=== PATIENT | female | born 1950 | race Asian ===

== ENCOUNTER 2022-10-15 16:21 | Inpatient (IN) | payer BC, OTHER ==
[~2022-10-15] VITALS: Ht 149.9 cm; Wt 79.4 kg
[2022-10-15] MEDS ORDERED: NITROGLYCERIN 0.4 MG SL TAB SL ONE (16:30)
[2022-10-15] MEDS ORDERED: ASPirin 325 MG TAB PO ONE (16:30)
[2022-10-15] MEDS ORDERED: IPRATROPIUM BROM 0.5 MG/2.5ML INH SOL NEB ONE (16:30)
[2022-10-15] MEDS ORDERED: DexAMETHasone SOD PHOS 10MG/1ML VIAL INJ IV ONE (16:30)
[2022-10-15] MEDS ORDERED: ALBUTEROL SULF 2.5 MG/0.5ML(0.5%) NEB SOLN NEB ONE (16:30)
[2022-10-15 16:53] LABS: Basophils # (auto) 0.1 10 ^3/uL (0-0.2); Eosinophils # (auto) 0.7 10 ^3/uL (0-0.8); Eosinophils % (auto) 8.3 % (0.0-7.0); Hematocrit 40.8 % (36.0-46.0); Hemoglobin 13.7 g/dL (12.2-16.2); Lymphocytes % (auto) 23.8 % (10.0-50.0); Mean Corpuscular Hemoglobin 32.3 pg (28.0-32.0); Mean Corpuscular Hgb Conc. 33.5 g/dL (32.0-36.0); Mean Corpuscular Volume 96.4 fL (80.0-100.0); Monocytes # (auto) 0.5 10 ^3/uL (0-1.3); Monocytes % (auto) 6.1 % (0.0-12.0); Neutrophils % (auto) 60.8 % (37.0-80.0); Red Blood Cells 4.23 10^6/uL (4.0-5.20); Red Cell Distribution Width 14.8 % (11.8-14.3); White Blood Cell 8.2 10^3/uL (4.4-10.8)
[2022-10-15 17:14] LABS: Albumin 3.9 g/dL (3.4-5.0); Calcium 9.1 mg/dL (8.5-10.1); Potassium 3.9 mmol/L (3.5-5.1)
[2022-10-15 17:17] LABS: BUN/Creatinine Ratio 23.9 (10.0-20.0); Bilirubin, Total 0.8 mg/dL (0.2-1.0); Total Protein 7.4 g/dL (6.4-8.2)
[2022-10-15] MEDS ORDERED: IOHEXOL 350 MG/ML 100ML IJ ONE (18:54)
[2022-10-15] MEDS ORDERED: ACETAMINOPHEN 325 MG TAB PO PRN (19:30)
[2022-10-15] MEDS ORDERED: ENOXAPARIN SOD 80 MG/0.8ML SYRINGE SC ONE (19:30)
[2022-10-15] MEDS ORDERED: NITROGLYCERIN 0.4 MG SL TAB SL PRN (19:30)
[2022-10-15] MEDS ORDERED: MORPHINE SULFATE INJ 2 MG/ml SYRG IV PRN (19:30)
[2022-10-15] MEDS ORDERED: SODIUM CHLORIDE 0.9% 1,000 ML IV SCH (19:30)
[2022-10-15 19:41] LABS: Urine Bacteria NONE SEEN /hpf (None Seen); Urine Blood Negative /uL (Negative); Urine Specific Gravity 1.009 (1.001-1.035); Urine WBC 1 /hpf (0 - 5)
[2022-10-15] MEDS ORDERED: DEXTROSE (50%) 50ML SYRG IV PRN (19:45)
[2022-10-15] MEDS ORDERED: ALBUTEROL SULF 2.5 MG/0.5ML(0.5%) NEB SOLN NEB PRN (19:45)
[2022-10-15 20:47] LABS: Cholesterol 143 mg/dL (< 200); Triglycerides 176 mg/dL (< 150)
[2022-10-15 20:49] LABS: HDL Cholesterol 45 mg/dL (40-59); LDL Cholesterol 73 mg/dL (< 100)
[2022-10-15 21:26] VITALS: BP 156/78
[2022-10-15] MEDS ORDERED: ALBUTEROL SULF 2.5 MG/0.5ML(0.5%) NEB SOLN NEB SCH (22:00)
[2022-10-15] MEDS ORDERED: IPRATROPIUM BROM 0.5 MG/2.5ML INH SOL NEB SCH (22:00)
[2022-10-15] MEDS: ACCU-CHEK COMFORT CURVE STRIP VI SCH (23:12)
[2022-10-15] MEDS ORDERED: DexAMETHasone SOD PHOS 10MG/1ML VIAL INJ IM ONE (23:15)
[2022-10-15] MEDS: InsuLIN REG 1unit/0.01ml Soln (100units/ml) SC SCH (23:28)
[2022-10-16] MEDS: IPRATROPIUM BROM 0.5 MG/2.5ML INH SOL NEB PRN ×2 (00:48→18:52)
[2022-10-16] MEDS: ALBUTEROL SULF 2.5 MG/0.5ML(0.5%) NEB SOLN NEB PRN ×2 (00:48→18:51)
[2022-10-16 05:36] LABS: Basophils # (auto) 0.1 10 ^3/uL (0-0.2); Basophils % (auto) 0.8 % (0.0-2.0); Eosinophils # (auto) 0.1 10 ^3/uL (0-0.8); Eosinophils % (auto) 0.9 % (0.0-7.0); Lymphocytes # (auto) 0.7 10 ^3/uL (0.4-5.4); Lymphocytes % (auto) 8.3 % (10.0-50.0); Mean Corpuscular Hemoglobin 32.5 pg (28.0-32.0); Mean Corpuscular Hgb Conc. 33.4 g/dL (32.0-36.0); Mean Corpuscular Volume 97.1 fL (80.0-100.0); Monocytes # (auto) 0.1 10 ^3/uL (0-1.3); Monocytes % (auto) 0.8 % (0.0-12.0); Neutrophils # (auto) 7.9 10 ^3/uL (1.6-8.6); Neutrophils % (auto) 89.2 % (37.0-80.0); Red Blood Cells 4.01 10^6/uL (4.0-5.20); Red Cell Distribution Width 14.5 % (11.8-14.3); White Blood Cell 8.8 10^3/uL (4.4-10.8)
[2022-10-16 05:48] LABS: Calcium 9.3 mg/dL (8.5-10.1)
[2022-10-16 05:54] LABS: Albumin 3.5 g/dL (3.4-5.0); BUN/Creatinine Ratio 23.7 (10.0-20.0); Bilirubin, Total 0.7 mg/dL (0.2-1.0); Total Protein 7.3 g/dL (6.4-8.2)
[2022-10-16] MEDS: InsuLIN REG 1unit/0.01ml Soln (100units/ml) SC SCH ×4 (06:51→22:15)
[2022-10-16] MEDS: ACCU-CHEK COMFORT CURVE STRIP VI SCH ×4 (06:52→22:17)
[2022-10-16 09:00] VITALS: BP 185/99
[2022-10-16] MEDS ORDERED: CARV6.2551 PO (10:01)
[2022-10-16] MEDS ORDERED: CLON0.1T PO (10:01)
[2022-10-16] MEDS ORDERED: HYDR50TA15 PO (10:02)
[2022-10-16] MEDS ORDERED: FURO20TA3 PO (10:05)
[2022-10-16] MEDS ORDERED: GABA-339 PO (10:05)
[2022-10-16] MEDS ORDERED: HYDR-4798 PO (10:09)
[2022-10-16] MEDS: HYDROcodone-ACET 10/325MG TAB PO PRN ×2 (10:12→22:03)
[2022-10-16] MEDS ORDERED: LEVO50TA7 PO (11:31)
[2022-10-16] MEDS ORDERED: hydrALAZINE HCL 20 MG/ML VL IV PRN (11:45)
[2022-10-16] MEDS ORDERED: LEVOTHYROXINE SODIUM 50 MCG TAB PO ONE (12:00)
[2022-10-16] MEDS ORDERED: DexAMETHasone SOD PHOS 10MG/1ML VIAL INJ IV ONE (12:00)
[2022-10-16] MEDS ORDERED: FUROSEMIDE 20 MG TAB PO ONE (12:00)
[2022-10-16] MEDS: GABAPENTIN 300 MG CAP PO SCH ×2 (13:29→22:03)
[2022-10-16] MEDS: hydrALAZINE HCL 25 MG TAB PO SCH ×2 (13:29→22:05)
[2022-10-16] MEDS: cloNIDine HCL 0.1 MG TAB PO SCH ×2 (13:30→22:05)
[2022-10-16] MEDS ORDERED: IOHEXOL 350 MG/ML 100ML IJ ONE (14:11)
[2022-10-16 17:00] VITALS: BP 133/63
[2022-10-16 22:00] VITALS: BP 169/75
[2022-10-16] MEDS: CARVEDILOL 3.125 MG TAB PO SCH (22:04)
[2022-10-17 05:00] VITALS: BP 150/63
[2022-10-17] MEDS: hydrALAZINE HCL 25 MG TAB PO SCH ×2 (06:02→14:40)
[2022-10-17] MEDS: cloNIDine HCL 0.1 MG TAB PO SCH ×2 (06:03→14:40)
[2022-10-17] MEDS: GABAPENTIN 300 MG CAP PO SCH ×2 (06:03→14:39)
[2022-10-17] MEDS: ACCU-CHEK COMFORT CURVE STRIP VI SCH ×2 (06:03→11:26)
[2022-10-17 06:10] LABS: BUN/Creatinine Ratio 30.3 (10.0-20.0); Calcium 9.6 mg/dL (8.5-10.1); Potassium 3.3 mmol/L (3.5-5.1)
[2022-10-17] MEDS: InsuLIN REG 1unit/0.01ml Soln (100units/ml) SC SCH ×2 (06:21→11:41)
[2022-10-17 06:25] LABS: Basophils # (auto) 0 10 ^3/uL (0-0.2); Basophils % (auto) 0.4 % (0.0-2.0); Eosinophils # (auto) 0 10 ^3/uL (0-0.8); Eosinophils % (auto) 0.1 % (0.0-7.0); Hematocrit 38.9 % (36.0-46.0); Hemoglobin 13.1 g/dL (12.2-16.2); Lymphocytes # (auto) 1.3 10 ^3/uL (0.4-5.4); Lymphocytes % (auto) 11.6 % (10.0-50.0); Mean Corpuscular Hemoglobin 32.7 pg (28.0-32.0); Mean Corpuscular Hgb Conc. 33.6 g/dL (32.0-36.0); Mean Corpuscular Volume 97.3 fL (80.0-100.0); Monocytes # (auto) 0.8 10 ^3/uL (0-1.3); Monocytes % (auto) 7.3 % (0.0-12.0); Neutrophils # (auto) 8.7 10 ^3/uL (1.6-8.6); Neutrophils % (auto) 80.6 % (37.0-80.0); Nucleated Red Blood Cells % 0.1 %; Red Cell Distribution Width 14.3 % (11.8-14.3); White Blood Cell 10.9 10^3/uL (4.4-10.8)
[2022-10-17] MEDS ORDERED: LEVOTHYROXINE SODIUM 50 MCG TAB PO SCH (07:00)
[2022-10-17 07:30] VITALS: BP 150/63
[2022-10-17] MEDS ORDERED: POTASSIUM CHL 20 Meq TABLET PO ONE (08:30)
[2022-10-17] MEDS ORDERED: METH4PAK PO (08:35)
[2022-10-17] MEDS ORDERED: LEVO250T69 PO (08:35)
[2022-10-17] MEDS ORDERED: AZITHROMYCIN 500MG/ 250ML 250 ML IV ONE (08:45)
[2022-10-17] MEDS ORDERED: cefTRIAXone 1GM/50ML D5W 50 ML IV ONE (08:45)
[2022-10-17 08:59] VITALS: BP 110/52
[2022-10-17] MEDS ORDERED: FUROSEMIDE 20 MG TAB PO SCH (10:00)
[2022-10-17] MEDS: CARVEDILOL 3.125 MG TAB PO SCH (10:07)
[2022-10-17 12:51] VITALS: BP 124/55
[2022-10-17 14:10] VITALS: BP 124/55
[2022-10-17 17:00] VITALS: BP 173/73
[2022-10-20 14:08] LABS: Hepatitis B Core IgM Negative
[2022-10-20 14:09] LABS: Hepatitis C Antibody Negative (Negative)
== END 2022-10-17 17:00 | disposition home or self-care (01) | DRG 193 ==
LOC: ER 16:21 → TELE 19:32 → TELE-CENTR 10-16 08:34
PROVIDERS: ADMIT Nurse Practitioner Family; ATTEND Internal Medicine Geriatric Medicine
PROC: 05HF33Z Insertion of Infusion Device into Left Cephalic Vein, Percutaneous Approach (ICD-10-PCS; principal; 2022-10-16)
PROC: B54NZZA Ultrasonography of Left Upper Extremity Veins, Guidance (ICD-10-PCS; 2022-10-16)
DX: J18.9 Pneumonia, unspecified organism (principal); J96.01 Acute respiratory failure with hypoxia; J45.901 Unspecified asthma with (acute) exacerbation; J98.11 Atelectasis; N17.9 Acute kidney failure, unspecified; J44.0 Chronic obstructive pulmonary disease with (acute) lower respiratory infection; E66.01 Morbid (severe) obesity due to excess calories; Z20.822 Contact with and (suspected) exposure to COVID-19; E11.22 Type 2 diabetes mellitus with diabetic chronic kidney disease; E78.5 Hyperlipidemia, unspecified; E87.6 Hypokalemia; E89.0 Postprocedural hypothyroidism; I12.9 Hypertensive chronic kidney disease with stage 1 through stage 4 chronic kidney disease, or unspecified chronic kidney disease; N18.9 Chronic kidney disease, unspecified; Z85.3 Personal history of malignant neoplasm of breast; Z90.11 Acquired absence of right breast and nipple; Z90.710 Acquired absence of both cervix and uterus; Z68.35 Body mass index [BMI] 35.0-35.9, adult; Z90.49 Acquired absence of other specified parts of digestive tract
CPT/HCPCS: 36415; 36600; 70450; 71045; 71275; 80048; 80053; 80061; 81001; 82805; 82962; 83036; 83605; 83735; 83880; 83930; 84443; 84484; 85025; 85379; 86705; 86803; 87426; 87804; 93005; 94640; 96360; 96372; G0378; J0696; J1100; J1815

== ENCOUNTER 2023-03-15 21:25 | Inpatient (IN) | payer OTHER, MEDICAID ==
[~2023-03-15] VITALS: Ht 149.9 cm; Wt 86.6 kg
[~2023-03-15 21:25] MED LIST: CARV6.2551 PO; CLON0.1T PO; FURO20TA3 PO; GABA-339 PO; HYDR-4297 PO; HYDR-4798 PO; LEVO250T58 PO; LEVO50TA7 PO; METH4PAK PO
[2023-03-15 22:05] VITALS: PULSE 90; RESP 20; O2SAT 94
[2023-03-15 22:45] LABS: Basophils # (auto) 0.1 10 ^3/uL (0-0.2); Basophils % (auto) 0.5 % (0.0-2.0); Eosinophils # (auto) 0.2 10 ^3/uL (0-0.8); Eosinophils % (auto) 1.4 % (0.0-7.0); Hematocrit 40.3 % (36.0-46.0); Hemoglobin 13.2 g/dL (12.2-16.2); Lymphocytes # (auto) 1.4 10 ^3/uL (0.4-5.4); Lymphocytes % (auto) 11.8 % (10.0-50.0); Mean Corpuscular Hemoglobin 32.7 pg (28.0-32.0); Mean Corpuscular Hgb Conc. 32.8 g/dL (32.0-36.0); Mean Corpuscular Volume 99.5 fL (80.0-100.0); Monocytes % (auto) 8.2 % (0.0-12.0); Neutrophils # (auto) 9.4 10 ^3/uL (1.6-8.6); Neutrophils % (auto) 78.1 % (37.0-80.0); Nucleated Red Blood Cells % 0.3 %; Red Blood Cells 4.05 10^6/uL (4.0-5.20); Red Cell Distribution Width 16.2 % (11.8-14.3)
[2023-03-15 23:07] LABS: Alanine Aminotransferase 46 U/L (7-40); Albumin 4.3 g/dL (3.2-4.8); Alkaline Phosphatase 98 U/L (46-116); Anion Gap 12 (5-15); Aspartate Aminotransferase 38 U/L (13-40); BUN/Creatinine Ratio 11.3 (10.0-20.0); Bilirubin, Total 1.1 mg/dL (0.2-1.0); Blood Urea Nitrogen 18 mg/dL (9-23); Calcium 9.4 mg/dL (8.7-10.4); Carbon Dioxide 23 mmol/L (20-30); Chloride 105 mmol/L (98-107); Glucose 157 mg/dL (74-106); Lactic Acid w/Reflex 2.5 mmol/L (0.4-2.0); Potassium 3.9 mmol/L (3.5-5.1); Sodium 140 mmol/L (136-145)
[2023-03-15] MEDS ORDERED: FUROSEMIDE 20 MG/2 ML VIAL IV ONE (23:30)
[2023-03-15] MEDS ORDERED: cefTRIAXone 1GM/50ML D5W 50 ML IV ONE (23:45)
[2023-03-15] MEDS ORDERED: AZITHROMYCIN 500MG/ 250ML 250 ML IV ONE (23:45)
[2023-03-16] VITALS (8 sets, daily range): BP systolic 105–165; BP diastolic 52–94; PULSE 61–106; RESP 12–22; TEMP 98; O2SAT 93–100
[2023-03-16] MEDS ORDERED: SODIUM CHLORIDE 0.9% 1,000 ML IV ONE ×2 (00:15)
[2023-03-16] MEDS ORDERED: ENOXAPARIN SOD 80 MG/0.8ML SYRINGE SC ONE (01:15)
[2023-03-16 03:16] LABS: Urine Bacteria NONE SEEN /hpf (None Seen); Urine Blood Negative /uL (Negative); Urine Clarity Clear (Clear); Urine Color Yellow (Yellow); Urine Hyaline Cast FEW /lpf (0 - 2); Urine Protein, UAD Negative (Negative); Urine Specific Gravity 1.011 (1.001-1.035); Urine Urobilinogen Normal (Negative); Urine WBC <1 /hpf (0 - 5); Urine pH 5.5 (5.0-8.0)
[2023-03-16 03:55] LABS: Amphetamine Screen, Urine Neg (NEGATIVE); Barbiturate Scree,Urine Neg (NEGATIVE); Benzodiazephine Screen, Urine Neg (NEGATIVE); Cocaine Screen, Urine Neg (NEGATIVE); Opiate Scree,Urine Neg (NEGATIVE)
[2023-03-16 03:56] LABS: Cannabinoid Screen, Urine Neg (NEGATIVE); Phencyclidine Screen, Urine Neg (NEGATIVE)
[2023-03-16 04:21] LABS: COVID19 ANTIGEN SOFIA FIA NEGATIVE (NEGATIVE)
[2023-03-16] MEDS ORDERED: ALBUTEROL SULF 2.5 MG/0.5ML(0.5%) NEB SOLN NEB PRN (05:30)
[2023-03-16] MEDS ORDERED: ONDANSETRON HCL 4 MG/2 ML VIAL IV PRN (05:30)
[2023-03-16] MEDS ORDERED: DEXTROSE (50%) 50ML SYRG IV PRN (05:30)
[2023-03-16] MEDS ORDERED: MORPHINE SULFATE INJ 2 MG/ml SYRG IV PRN (05:30)
[2023-03-16] MEDS ORDERED: NITROGLYCERIN 0.4 MG SL TAB SL PRN (05:30)
[2023-03-16] MEDS ORDERED: ACETAMINOPHEN 325 MG TAB PO PRN (05:30)
[2023-03-16] MEDS: hydrALAZINE HCL 25 MG TAB PO SCH ×3 (06:00→21:36)
[2023-03-16] MEDS: LEVOTHYROXINE SODIUM 50 MCG TAB PO SCH (06:11)
[2023-03-16] MEDS: InsuLIN REG 1unit/0.01ml Soln (100units/ml) SC SCH ×4 (06:19→21:48)
[2023-03-16] MEDS: ACCU-CHEK COMFORT CURVE STRIP VI SCH ×4 (06:19→21:36)
[2023-03-16 08:04] LABS: Triglycerides 103 mg/dL (< 150)
[2023-03-16 08:05] LABS: LDL Cholesterol 56 mg/dL (< 100)
[2023-03-16 08:06] LABS: Cholesterol 123 mg/dL (< 200); HDL Cholesterol 48 mg/dL (40-59)
[2023-03-16] MEDS: ASPirin 81 mg TAB PO SCH (10:12)
[2023-03-16] MEDS: FUROSEMIDE 40 MG TAB PO SCH (10:13)
[2023-03-16] MEDS: ALLOPURINOL 100 MG TAB PO SCH (10:13)
[2023-03-16] MEDS: CARVEDILOL 3.125 MG TAB PO SCH ×2 (10:13→21:35)
[2023-03-16] MEDS: ENOXAPARIN SOD 40 MG/0.4 ML SYRINGE SC SCH (10:13)
[2023-03-16] MEDS ORDERED: FURO40TA4 PO ×2 (17:06→19:10)
[2023-03-16] MEDS ORDERED: MELO-335 PO (17:07)
[2023-03-16] MEDS ORDERED: PANT1INJ3 PO (17:08)
[2023-03-16] MEDS ORDERED: ALLO100T PO (17:08)
[2023-03-16] MEDS ORDERED: GLIP10TA9 PO (17:09)
[2023-03-16] MEDS ORDERED: ATOR20TA50 PO (17:11)
[2023-03-16] MEDS ORDERED: SPIR25TA8 PO (17:12)
[2023-03-16] MEDS ORDERED: INSUINJ2 SC (17:13)
[2023-03-16] MEDS ORDERED: PIOG1TAB51 PO (19:10)
[2023-03-16] MEDS: ATORVASTATIN 20 MG TAB PO SCH (21:35)
[2023-03-16] MEDS: cefTRIAXone 1GM/50ML D5W 50 ML IV SCH (23:17)
[2023-03-17] VITALS (9 sets, daily range): BP systolic 152–186; BP diastolic 85–120; PULSE 73–101; RESP 16–18; TEMP 96.8–98.4; O2SAT 90–100
[2023-03-17] MEDS: AZITHROMYCIN 500MG/ 250ML 250 ML IV SCH ×2 (01:20→21:46)
[2023-03-17] MEDS: LEVOTHYROXINE SODIUM 50 MCG TAB PO SCH (06:08)
[2023-03-17] MEDS: hydrALAZINE HCL 25 MG TAB PO SCH ×4 (06:08→21:43)
[2023-03-17] MEDS: InsuLIN REG 1unit/0.01ml Soln (100units/ml) SC SCH ×4 (06:50→21:39)
[2023-03-17] MEDS: ACCU-CHEK COMFORT CURVE STRIP VI SCH ×4 (06:50→21:39)
[2023-03-17 07:13] LABS: Basophils # (auto) 0.1 10 ^3/uL (0-0.2); Basophils % (auto) 0.8 % (0.0-2.0); Eosinophils # (auto) 0.2 10 ^3/uL (0-0.8); Hematocrit 40.8 % (36.0-46.0); Hemoglobin 13.6 g/dL (12.2-16.2); Lymphocytes # (auto) 1.7 10 ^3/uL (0.4-5.4); Mean Corpuscular Hemoglobin 32.7 pg (28.0-32.0); Mean Corpuscular Hgb Conc. 33.3 g/dL (32.0-36.0); Mean Corpuscular Volume 98.4 fL (80.0-100.0); Monocytes # (auto) 0.8 10 ^3/uL (0-1.3); Monocytes % (auto) 9.7 % (0.0-12.0); Neutrophils # (auto) 5.1 10 ^3/uL (1.6-8.6); Neutrophils % (auto) 65.5 % (37.0-80.0); Nucleated Red Blood Cells % 0.1 %; Red Blood Cells 4.15 10^6/uL (4.0-5.20); Red Cell Distribution Width 16.2 % (11.8-14.3); White Blood Cell 7.9 10^3/uL (4.4-10.8)
[2023-03-17 07:17] LABS: Alanine Aminotransferase 38 U/L (7-40); Albumin 4.2 g/dL (3.2-4.8); Alkaline Phosphatase 100 U/L (46-116); Anion Gap 8 (5-15); Aspartate Aminotransferase 26 U/L (13-40); BUN/Creatinine Ratio 12.1 (10.0-20.0); Bilirubin, Total 1.2 mg/dL (0.2-1.0); Blood Urea Nitrogen 11 mg/dL (9-23); Calcium 9.6 mg/dL (8.7-10.4); Carbon Dioxide 28 mmol/L (20-30); Chloride 106 mmol/L (98-107); Glucose 141 mg/dL (74-106); Magnesium 1.8 mg/dL (1.6-2.6); Potassium 3.2 mmol/L (3.5-5.1); Sodium 142 mmol/L (136-145); Total Protein 6.9 g/dL (5.7-8.2)
[2023-03-17] MEDS: ALLOPURINOL 100 MG TAB PO SCH (09:22)
[2023-03-17] MEDS: ASPirin 81 mg TAB PO SCH (09:22)
[2023-03-17] MEDS: ENOXAPARIN SOD 40 MG/0.4 ML SYRINGE SC SCH (09:22)
[2023-03-17] MEDS: CARVEDILOL 3.125 MG TAB PO SCH ×2 (09:23→21:44)
[2023-03-17] MEDS: FUROSEMIDE 40 MG TAB PO SCH (09:23)
[2023-03-17] MEDS ORDERED: HYDROcodone-ACET 10/325MG TAB PO PRN (15:15)
[2023-03-17] MEDS ORDERED: cloNIDine HCL 0.1 MG TAB PO ONE (15:15)
[2023-03-17] MEDS: LACTULOSE 20Gm/30ML SOLN PO ONE ×2 (15:31→15:33)
[2023-03-17] MEDS ORDERED: LISINOPRIL 5 MG TAB PO SCH (15:45)
[2023-03-17] MEDS ORDERED: POTASSIUM CHL 20 Meq TABLET PO ONE (18:00)
[2023-03-17] MEDS: ATORVASTATIN 20 MG TAB PO SCH (21:42)
[2023-03-17] MEDS: cloNIDine HCL 0.1 MG TAB PO SCH (21:43)
[2023-03-18] MEDS: cefTRIAXone 1GM/50ML D5W 50 ML IV SCH
[2023-03-18] MEDS: cloNIDine HCL 0.1 MG TAB PO SCH ×2 (04:59→14:00)
[2023-03-18] MEDS: hydrALAZINE HCL 25 MG TAB PO SCH ×2 (04:59→14:00)
[2023-03-18 05:00] VITALS: BP 93/62; PULSE 69; RESP 20; TEMP 97.9; O2SAT 98
[2023-03-18] MEDS ORDERED: ALBUTEROL MEDNEB 2.5 mg/3ml NEB ONE (06:25)
[2023-03-18] MEDS: LEVOTHYROXINE SODIUM 50 MCG TAB PO SCH (06:30)
[2023-03-18] MEDS: ACCU-CHEK COMFORT CURVE STRIP VI SCH ×2 (06:41→12:11)
[2023-03-18] MEDS: InsuLIN REG 1unit/0.01ml Soln (100units/ml) SC SCH ×2 (06:42→11:30)
[2023-03-18 06:47] LABS: Anion Gap 9 (5-15); Calcium 9.5 mg/dL (8.7-10.4); Carbon Dioxide 27 mmol/L (20-30); Chloride 105 mmol/L (98-107); Potassium 3.5 mmol/L (3.5-5.1); Sodium 141 mmol/L (136-145)
[2023-03-18 06:53] LABS: BUN/Creatinine Ratio 17.8 (10.0-20.0); Blood Urea Nitrogen 21 mg/dL (9-23); Glucose 146 mg/dL (74-106); Magnesium 1.8 mg/dL (1.6-2.6)
[2023-03-18 08:30] VITALS: PULSE 67; RESP 18
[2023-03-18 09:00] VITALS: BP 109/74; PULSE 72; RESP 18; TEMP 98.4; O2SAT 91
[2023-03-18] MEDS ORDERED: LEVO750T8 PO (09:44)
[2023-03-18] MEDS ORDERED: LACTULOSE 20Gm/30ML SOLN PO SCH (10:00)
[2023-03-18] MEDS: ASPirin 81 mg TAB PO SCH (11:58)
[2023-03-18] MEDS: ALLOPURINOL 100 MG TAB PO SCH (12:00)
[2023-03-18] MEDS: CARVEDILOL 3.125 MG TAB PO SCH (12:00)
[2023-03-18] MEDS: FUROSEMIDE 40 MG TAB PO SCH (12:01)
[2023-03-18] MEDS: ENOXAPARIN SOD 40 MG/0.4 ML SYRINGE SC SCH (12:20)
[2023-03-18 13:00] VITALS: BP 137/90; PULSE 85; RESP 16; TEMP 98; O2SAT 95
[2023-03-19] MEDS ORDERED: AZITHROMYCIN 250 MG TAB PO SCH (10:00)
== END 2023-03-18 14:30 | disposition home or self-care (01) | DRG 177 ==
LOC: EDBD 21:25 → ER 21:25 → EDUNIT# 21:25 → TELE 03-16 05:26 → TELE-WESTW 03-16 18:25
PROVIDERS: ADMIT Nurse Practitioner; ATTEND Internal Medicine Geriatric Medicine
DX: J15.69 Pneumonia due to other Gram-negative bacteria (principal); J96.01 Acute respiratory failure with hypoxia; N17.0 Acute kidney failure with tubular necrosis; J44.0 Chronic obstructive pulmonary disease with (acute) lower respiratory infection; J98.11 Atelectasis; J15.9 Unspecified bacterial pneumonia; E11.9 Type 2 diabetes mellitus without complications; I10 Essential (primary) hypertension; E78.5 Hyperlipidemia, unspecified; M54.9 Dorsalgia, unspecified; G89.29 Other chronic pain; Z20.822 Contact with and (suspected) exposure to COVID-19; I25.10 Atherosclerotic heart disease of native coronary artery without angina pectoris; E87.6 Hypokalemia; Z79.899 Other long term (current) drug therapy; Z80.1 Family history of malignant neoplasm of trachea, bronchus and lung; Z82.3 Family history of stroke; Z82.49 Family history of ischemic heart disease and other diseases of the circulatory system; Z83.3 Family history of diabetes mellitus; Z87.891 Personal history of nicotine dependence; Z90.11 Acquired absence of right breast and nipple; Z90.710 Acquired absence of both cervix and uterus; Z90.49 Acquired absence of other specified parts of digestive tract
CPT/HCPCS: 36415; 70450; 71045; 71250; 72125; 74176; 80048; 80053; 80061; 80307; 81001; 82962; 83036; 83605; 83735; 83880; 84443; 84484; 85025; 85379; 87040; 87426; 93005; 93306; 96361; 96365; 96368; 96372; 96375; G0378; J0696; J1815